=== PATIENT | male | born 1965 | race Caucasian/White ===

== ENCOUNTER 2020-03-16 21:56 | Emergency (ER) | payer BC ==
[2020-03-16 22:00] VITALS: BP 148/88; PULSE 86; RESP 18; TEMP 98.2
[2020-03-16] MEDS ORDERED: SODIUM CHLORIDE 0.9% 500 ML 500 ML IV STA (22:18)
--- NOTE | 2020-03-16 22:25 | ED ---
General Adult HPI - General Chief complaint: Abdominal Pain Stated complaint: Right flank pain Time Seen by Provider: 03/16/20 22:08 Source: patient, RN notes reviewed, old records reviewed Mode of arrival: ambulatory Limitations: no limitations - History of Present Illness Initial comments: 54-year-old male patient presents to ED as ED complaining of right flank pain. Patient had kidney stone approximately 15 years ago. Reports that this feels the same. One hour prior to presentation he developed right lower flank pain. Denies any other complaints. Systemic: Pt denies fatigue, fever/chills, rash. Pt denies weakness, night sweats, weight loss. Neuro: Pt denies headache, visual disturbances, syncope or pre-syncope. HEENT: Pt denies ocular discharge or irritation, otalgia, rhinorrhea, pharyngitis or notable lymphadenopathy. Cardiopulmonary: Pt denies chest pain, SOB, heart palpitations, dyspnea on exertion. Abdominal/GI: Pt denies abdominal pain, n/v/d. : Pt denies dysuria, burning w/ urination, frequency/urgency. Denies new onset urinary or bowel incontinence. MSK: Pt denies myalgia, loss of strength or function in extremities. Neuro: Pt denies new onset weakness, paresthesias. - Related Data Home Medications Medication Instructions Recorded Confirmed Lisinopril [Zestril] 5 mg PO HS 04/10/16 03/16/20 metFORMIN HCL [Glucophage] 500 mg PO BID 04/10/16 03/16/20 Cider Vinegar [Apple Cider Vinegar] 600 mg PO HS 03/16/20 03/16/20 Fish Oil(Unknown Dose) 1 cap PO BID 03/16/20 03/16/20 Magnesium(Unknown Dose) 1 tab PO DAILY 03/16/20 03/16/20 Vitamin D3(Unknown Dose) 1 tab PO DAILY 03/16/20 03/16/20 Allergies Allergy/AdvReac Type Severity Reaction Status Date / Time No Known Allergies Allergy Verified 03/16/20 22:52 Review of Systems ROS Statement: Those systems with pertinent positive or pertinent negative responses have been documented in the HPI. ROS Other: All systems not noted in ROS Statement are negative. Past Medical History Past Medical History: Diabetes Mellitus, Hyperlipidemia Additional Past Medical History / Comment(s): STARTED LISINOPRIL & ATENOLOL 8-4-16,IRREG HR,KIDNEY STONE History of Any Multi-Drug Resistant Organisms: None Reported Past Surgical History: Cholecystectomy, Tonsillectomy Additional Past Surgical History / Comment(s): COLONOSCOPY Past Anesthesia/Blood Transfusion Reactions: No Reported Reaction Past Psychological History: No Psychological Hx Reported Smoking Status: Never smoker - Past Family History Father Family Medical History: Diabetes Mellitus Mother Family Medical History: No Reported History General Exam - General Exam Comments Initial Comments: Constitutional: NAD, AOX3, Pt has pleasant affect. HEENT: NC/AT, trachea midline, neck supple, no lymphadenopathy. Posterior pharynx non erythematous, without exudates. External ears appear normal, without discharge. Mucous membranes moist. EOM intact. There is no scleral icterus. No pallor noted. Cardiopulmonary: RRR, no murmurs, rubs or gallops, no JVD noted. Lungs CTAB in anterior and posterior martinez. No peripheral edema. Abdominal exam: Abdomen soft and non-distended. Abdomen non-tender to palpation in all 4 quadrants. Bowel sounds active in LLQ. No hepatosplenomegaly. No ecchymosis Neuro: CN II-XII grossly intact. No nuchal rigidity. No raccon eyes, no carmona sign. MSK: Full active ROM in upper and lower extremities, 5/5 stregnth. Limitations: no limitations Course Vital Signs 03/16/20 21:57 Temperature 98.2 F Pulse Rate 86 Respiratory 18 Rate Blood Pressure 148/88 O2 Sat by Pulse 97 Oximetry Medical Decision Making - Medical Decision Making 54-year-old male patient has a chief complaint right flank pain. Started approximately 1 hour prior to presentation. Vital signs stable, afebrile. Physical exam does not display acute pathology. Labs investigations revealed mild hyperglycemia. Glucose and blood in urine. CT and pelvis with normal appendix. Moderate colonic diverticulosis without signs of diverticulitis. An chest entirety left renal calculi. Normal appendix. Old granulomatous disease. Patient likely passed a kidney stone. Patient discharged with outpatient neurology follow-up as well as primary care provider will return to ER if condition worsens. Case discussed with Dr. Tao. - Lab Data Result diagrams: 03/16/20 22:54 03/16/20 22:54 Lab Results 03/16/20 03/16/20 03/16/20 Range/Units 22:54 22:54 22:54 WBC 8.9 (3.8-10.6) k/uL RBC 5.13 (4.30-5.90) m/uL Hgb 15.5 (13.0-17.5) gm/dL Hct 45.5 (39.0-53.0) % MCV 88.8 (80.0-100.0) fL MCH 30.2 (25.0-35.0) pg MCHC 34.1 (31.0-37.0) g/dL RDW 12.3 (11.5-15.5) % Plt Count 297 (150-450) k/uL Neutrophils % 63 % Lymphocytes % 23 % Monocytes % 8 % Eosinophils % 4 % Basophils % 1 % Neutrophils # 5.6 (1.3-7.7) k/uL Lymphocytes # 2.1 (1.0-4.8) k/uL Monocytes # 0.7 (0-1.0) k/uL Eosinophils # 0.4 (0-0.7) k/uL Basophils # 0.1 (0-0.2) k/uL Sodium 136 L (137-145) mmol/L Potassium 3.9 (3.5-5.1) mmol/L Chloride 103 (98-107) mmol/L Carbon Dioxide 24 (22-30) mmol/L Anion Gap 9 mmol/L BUN 17 (9-20) mg/dL Creatinine 0.85 (0.66-1.25) mg/dL Est GFR (CKD-EPI)AfAm >90 (>60 ml/min/1.73 sqM) Est GFR (CKD-EPI)NonAf >90 (>60 ml/min/1.73 sqM) Glucose 339 H (74-99) mg/dL Calcium 9.3 (8.4-10.2) mg/dL Total Bilirubin 0.7 (0.2-1.3) mg/dL AST 31 (17-59) U/L ALT 28 (4-49) U/L Alkaline Phosphatase 83 (38-126) U/L Total Protein 6.7 (6.3-8.2) g/dL Albumin 4.1 (3.5-5.0) g/dL Lipase 87 (23-300) U/L Urine Color Yellow Urine Appearance Clear (Clear) Urine pH 5.0 (5.0-8.0) Ur Specific [place] 1.034 (1.001-1.035) Urine Protein 1+ H (Negative) Urine Glucose (UA) 3+ H (Negative) Urine Ketones 1+ H (Negative) Urine Blood Moderate H (Negative) Urine Nitrite Negative (Negative) Urine Bilirubin Negative (Negative) Urine Urobilinogen <2.0 (<2.0) mg/dL Ur Leukocyte Esterase Negative (Negative) Urine RBC 172 H (0-5) /hpf Urine WBC 1 (0-5) /hpf Urine Mucus Many H (None) /hpf Disposition Clinical Impression: Flank pain, Hematuria Disposition: HOME SELF-CARE Condition: Stable Instructions (If sedation given, give patient instructions): Flank Pain (ED) Additional Instructions: Follow-up with primary care provider and and urologist tomorrow. Take metformin when you get home. Return to ER if condition worsens. Is patient prescribed a controlled substance at d/c from ED?: No Referrals: Myron Cordova MD [Primary Care Provider] - 1-2 days Marcos Pruett MD [STAFF PHYSICIAN] - 1-2 days
--- NOTE | 2020-03-16 22:54 | CT ---
EXAMINATION TYPE: CT abdomen pelvis wo con DATE OF EXAM: 03/16/2020 COMPARISON: None HISTORY: Right side flank pain. CT DLP: 1656.4 mGycm Automated exposure control for dose reduction was used. Lung bases are clear of infiltrate. There is no pleural effusion. There is no pericardial effusion. There are clips from cholecystectomy. There is small calcified granuloma in the liver. There are smal l calcified granuloma in the spleen. There is no evidence of pancreatic mass. Stomach is large withou t evidence of a mass. The bile ducts are not dilated. There is no adrenal mass. Kidneys have normal size. There is no hydro nephrosis. Ureters are not dilated. There is 2 mm calculus lower pole left kidney. There is no retrop eritoneal adenopathy. Bladder distends smoothly. There is no inguinal hernia. There is no evidence of pelvic mass. There is no free fluid in the pelvis. There are multiple sigmoid diverticula. There are diverticula also in the transverse and descending c olon. Appendix is posterior and appears normal. I see no definite diverticulitis. There is no mesente mae edema. There is no ascites or free air. There is no evidence of bowel obstruction. The lumbar des tebra have normal alignment. There is mild lumbar disc space narrowing with spur formation. Bony pelv is appears intact. IMPRESSION: Normal appendix. Moderate colonic diverticulosis without definite sign of diverticulitis. Nonobstructing tiny left renal calculus. Normal appendix. I do not see a cause for right flank pain. Old granulomatous disease.
[2020-03-16 23:09] LABS: Basophils # (A) 0.1 k/uL (0-0.2); Basophils % (A) 1 %; Eosinophils # (A) 0.4 k/uL (0-0.7); Eosinophils % (A) 4 %; HCT 45.5 % (39.0-53.0); HGB 15.5 gm/dL (13.0-17.5); Lymphocytes # (A) 2.1 k/uL (1.0-4.8); Lymphocytes % (A) 23 %; MCH 30.2 pg (25.0-35.0); MCHC 34.1 g/dL (31.0-37.0); MCV 88.8 fL (80.0-100.0); Mean Platelet Volume 6.6; Monocytes # (A) 0.7 k/uL (0-1.0); Monocytes % (A) 8 %; Neutrophils # (A) 5.6 k/uL (1.3-7.7); Neutrophils % (A) 63 %; Platelet Count 297 k/uL (150-450); RBC 5.13 m/uL (4.30-5.90); RDW 12.3 % (11.5-15.5); WBC 8.9 k/uL (3.8-10.6)
[2020-03-16 23:13] LABS: Appearance,Urine Clear (Clear); Bilirubin,Urine Negative (Negative); Blood,Urine Moderate (Negative); Color,Urine Yellow; Glucose,Urine (UA) 3+ (Negative); Ketones,Urine 1+ (Negative); Leukocyte Esterase,Urine Negative (Negative); Mucus,Urine Many /hpf; Nitrite,Urine Negative (Negative); Protein,Urine 1+ (Negative); RBC,Urine 172 /hpf (0-5); Specific Gravity,Urine 1.034 (1.001-1.035); Urobilinogen,Urine <2.0 mg/dL (<2.0); WBC,Urine 1 /hpf (0-5)
[2020-03-16 23:28] LABS: ALT 28 U/L (4-49); AST 31 U/L (17-59); African American GFR (CKD) >90 (>60 ml/min/1.73 sqM); Albumin 4.1 g/dL (3.5-5.0); Alkaline Phosphatase 83 U/L (38-126); Anion Gap 9 mmol/L; Blood Urea Nitrogen 17 mg/dL (9-20); Calcium 9.3 mg/dL (8.4-10.2); Carbon Dioxide 24 mmol/L (22-30); Chloride 103 mmol/L (98-107); Glucose 339 mg/dL (74-99); Non-African American GFR(CKD) >90 (>60 ml/min/1.73 sqM); Potassium 3.9 mmol/L (3.5-5.1); Sodium 136 mmol/L (137-145); Total Bilirubin 0.7 mg/dL (0.2-1.3); Total Protein 6.7 g/dL (6.3-8.2)
== END 2020-03-17 00:17 | disposition home or self-care (01) ==
LOC: EC 21:56
DX: N20.0 Calculus of kidney (principal); K57.30 Diverticulosis of large intestine without perforation or abscess without bleeding; E11.65 Type 2 diabetes mellitus with hyperglycemia; E78.5 Hyperlipidemia, unspecified; Z79.84 Long term (current) use of oral hypoglycemic drugs; Z79.899 Other long term (current) drug therapy; Z90.49 Acquired absence of other specified parts of digestive tract
CPT/HCPCS: 36415; 74176; 80053; 81001; 83690; 85025; 96360; 99284

== ENCOUNTER → 2020-04-23 | Outpatient (CLI) | payer BC ==
--- NOTE | 2020-04-23 14:23 | US ---
EXAMINATION TYPE: US kidneys/renal and bladder DATE OF EXAM: 04/23/2020 COMPARISON: CT March 16, 2020 CLINICAL HISTORY: N20.1 Calculus of ureter. EXAM MEASUREMENTS: Right Kidney: 12.6 x 5.8 x 6.0 cm Left Kidney: 13.1 x 6.9 x 6.2 cm Patient of very large body habitus, technically difficult study. Right Kidney: No hydronephrosis, measures large Left Kidney: No hydronephrosis, measures large Bladder: wnl Bilateral Jets seen: Yes Exam suboptimal due to patient's large body habitus. Renal size is symmetric and within normal limits . No hydronephrosis identified bilaterally. Bladder not greatly distended. Bilateral distal ureter je ts are seen. No concerning solid or cystic renal mass noted. Tiny 2 mm left-sided calculus on CT lowe r pole level coronal image 58 not clearly seen on ultrasound. IMPRESSION: Suboptimal study. No hydronephrosis noted bilaterally.
== END | disposition home or self-care (01) ==
LOC: RADUSWWP 13:26
PROVIDERS: ATTEND Urology
DX: N20.1 Calculus of ureter (principal)
CPT/HCPCS: 76770